=== PATIENT | male | born 1985 | race Caucasian/White ===

== ENCOUNTER 2023-04-19 15:07 | Outpatient (CLI) | payer OTHER, SELFPAY ==
[2023-04-19 22:47] LABS: PCR FLU A Negative PCR FLU A (Negative); PCR FLU B Negative PCR FLU B (Negative); PCR RSV Negative PCR RSV (Negative)
[2023-04-19 23:20] LABS: SARS PCR* Negative SARS-CoV-2 (Negative)
== END 2023-04-19 15:08 | disposition home or self-care (01) ==
LOC: KYNREF 15:07
PROVIDERS: PCP Nurse Practitioner Family; Visit Provider Nurse Practitioner Family
DX: J06.9 Acute upper respiratory infection, unspecified (principal)
CPT/HCPCS: 87631

== ENCOUNTER 2024-01-14 10:52 | Outpatient (CLI) | payer OTHER, SELFPAY ==
--- OUTSIDE RECORDS SUMMARY | 2024-01-14 10:56 | XMS_ITS | Clinical Summary ---
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 14 Patch 3 10/14/2018 Active CPAPIndications:MILAN (obstructive sleep apnea) Full face mask 1/3 months full face mask cushion / month 1 Device 1 02/22/2020 Active Active Problems Problem Noted Date Diagnosed Date Catathrenia 06/14/2017 AHI-1.1 , Catathrenia note on the recording, several centrals REM-5.3 07/30/2017 Central sleep apnea- HST 06/14/2017 CAHI-11 2017 Catathrenia 07/02/2017 Central sleep apnea 06/16/2017 Tobacco dependence 06/14/2017 Depressive disorder, not elsewhere classified Immunizations Name Administration Dates Next Due DTaP 04/15/1996, 9,05/13/1985,04/11/1984,02/21/1984,0 1983 HIB HbOC (HibTITER) 09/22/1985 MMR 07/31/1995,12/23/1984 Oral Polio Vaccine 12/11/1988,05/13/1985, 984,1983 Td (Age >=7 Years) 04/15/1996 Tdap 10/28/2008,11/28/2006 Social History Tobacco Use Types Packs/Day Years Used Date Smoking Tobacco: Every Day Cigarettes 1 15 Smokeless Tobacco: Never Tobacco Cessation:Ready to Q uit: Not Asked; Counseling Given: Not Answered Alcohol Use Standard Drinks/Week Comments Yes 2 (1 standard drink = 0.6 oz pur e alcohol) rare PHQ-2 Answer Date Recorded PHQ-2 TOTAL SCORE 0 08/25/2020 Social Connections Answer Date Recorded Frequency of Communication with Friends and Fami ly Not on file 10/04/2022 Financial Resource Strain Answer Date R ecorded Difficulty of Paying Living Expenses Not on file 04/16/2021 Difficulty of Paying Living Expenses Not on file 04/16/2021 Sex and Gender Information Value Date Recorded Sex Assigned at Not on file Gender Identity Not on file Sexual Orientation Not on file Obstetrics History Last Filed Vital Signs Vital Sign Reading Time Taken Comments Blood Pressure 124/80 10/04/2022 3:04 PM CDT Pulse 92 10/04/2022 3:04 PM CDT Temperature 36.7 ??C (98 ??F) 11/25/2018 3:13 PM CDT Respiratory Rate 12 10/04/2022 3:04 PM CDT Oxygen Saturation 99% 04/29/2019 3:06 PM SALES SUPPORT ADVISOR Inhaled Oxygen Concentration - - Weight 73.1 kg (161 lb 3.2 oz) 04/29/2019 3:06 P M SALES SUPPORT ADVISOR Height 179.5 cm (5' 10.67) 11/13/2018 7:54 AM C DT Body Mass Index 22.69 11/13/2018 7:54 AM CDT Plan of Treatment Health Maintenance Due Date Last Done Comments Pneumococcal series for age 6-64 (1 of 2 - PCV) 09/05/1989 HIV for age 15-65 09/05/1998 Tetanus booster 10/28/2018 10/28/2008, 11/14, 04/15/1996 BMI (ht and wt on same day) for age 18+ 11/14/2019 11/13/2018, 10/14/2018, 08/05/2018, Additional history exists Depression screening for age 12+ 08/25/2021 08/25/2020, 08/25/2020, 10/14/2018, Additional history exists Lipids for age 35-44 10/15/2023 10/14/2018 COVID-19 vaccine series (3 season) 2023 01/11/2021, 12/09/2020 Influenza for age 9-49 12/16/2023 Hepatitis C screening for ag e 18-79 Completed 06/10/2004 Tdap Completed 10/28/2008, 11/28/2006 Procedures Procedure Name Priority Date/Time Associated Diagnosis Comments LIPID PANEL W REFLEX MEASURED LDL Routine 10/14/2018 3:09 PM CDT Screening for hyperlipidemia ANTI HCV Timed 06/10/2004 3:13 PM SALES SUPPORT ADVISOR from Last 3 Months or Most Recently Relevant to Health Maintenance Results * LIPID PANEL W REFLEX MEASURED LDL (10/14/2018 3:09 PM CDT) CHOLESTEROL,TOTAL 159 100 - 199 mg/dL 10/14/2018 8:06 PM CDT [facility] TRIGLYCERIDES 78 <150 mg/dL 10/14/2018 8:06 PM CDT [facility] HDL CHOLESTEROL 54 >40 mg/dL 9 8:06 PM CDT [facility] NON-HDL CHOLESTEROL 105 <145 mg/dl 10/14/2018 8:06 PM CDT [facility] CHOL/HDL RATIO 2.94 <4.50 10/14/2018 8:06 PM CDT [facility] LDL CHOLESTEROL 89 <=130 mg/dL 10/14/2018 8:06 PM CDT [facility] PROVIDER ORDERED STATUS RANDOM 10/14/2018 8:06 PM CDT [facility] Blood BLOOD SPECIMEN / Unknown Venipuncture / Unknown 10/14/2018 3:09 PM CDT 10/14/2018 3:10 PM CDT Jose Martinez DO CHEMISTRY [facility] [address] [place] [address], * ANTI HCV (06/10/2004 3:13 PM SALES SUPPORT ADVISOR) ANTI HCV Non-reactiv e [facility] 06/10/2004 3:13 PM SALES SUPPORT ADVISOR 06/10/2004 7:49 PM SALES SUPPORT ADVISOR Narrative [facility] - 06/14/2004 1:31 PM SALES SUPPORT ADVISOR Testing Performed By [place], [place] Allan Mendoza MD SEND OUTS [facility] [address] [place] [address] from Last 3 Months or Most Recently Relevant to Health Maintenance Care Teams Clinical Program Consultant Relationship Specialty Start Date End Date Jose Martinez DO [address] [place] [address] PCP - General Family Practice 06/18/17
== END 2024-01-14 10:53 | disposition home or self-care (01) ==
PROVIDERS: PCP Nurse Practitioner Family; Visit Provider Nurse Practitioner Family
DX: Z13.21 Encounter for screening for nutritional disorder (principal); Z13.228 Encounter for screening for other metabolic disorders; Z13.220 Encounter for screening for lipoid disorders; Z13.0 Encounter for screening for diseases of the blood and blood-forming organs and certain disorders involving the immune mechanism
CPT/HCPCS: 80053; 80061; 82306; 85025

== ENCOUNTER 2024-11-24 08:47 | Outpatient (CLI) | payer OTHER, SELFPAY ==
--- NOTE | 2024-11-24 08:45 | CRLHL7_ITS ---
For Patients: As a result of the Cures Act, medical imaging exams and procedure reports are released immediately into your electronic medical record. You may view this report before your referring provider. If you have questions, please contact your health care provider. DIGITAL DIAGNOSTIC BILATERAL MAMMOGRAM USING TOMOSYNTHESIS AND COMPUTER-AIDED DETECTION RIGHT AXILLARY ULTRASOUND CLINICAL HISTORY: RIGHT axillary lump. COMPARISON: None. TECHNIQUE: Digital BILATERAL mammogram in four projections with computer-aided detection. Tomosynthesis was used in this interpretation. Real-time ultrasound imaging of RIGHT axilla with imaging documentation. BREAST COMPOSITION: The breasts are almost entirely fatty. FINDINGS: 3D CC/MLO BILATERAL mammogram images submitted. No suspicious masses or architectural distortion. No suspicious calcifications. Targeted RIGHT axillary ultrasound performed. Normal lymph nodes are present with normal morphology. Normal internal fatty stanislav and normal internal vascularity. No cortical thickening. Lymph nodes measure 2.6 x 0.5 x 1.5 cm and 2.3 x 0.6 x 1.6 cm. IMPRESSION: No suspicious findings. No evidence of malignancy. No abscess. RECOMMENDATIONS: Clinical follow-up. A lay language report of this examination will be provided to the patient. BI-RADS Category 2: Benign Dictated by Chandra Harris MD @ 11/24/2024 9:32:49 AM jj/Dictated by: Chandra Harris MD @ 11/24/2024 9:32:00 AM (Electronically Signed)
--- NOTE | 2024-11-24 09:15 | CRLHL7_ITS ---
For Patients: As a result of the Cures Act, medical imaging exams and procedure reports are released immediately into your electronic medical record. You may view this report before your referring provider. If you have questions, please contact your health care provider. SEE DIGITAL DIAGNOSTIC BILATERAL MAMMOGRAM PERFORMED SAME DAY CRL:yamileth carson/Dictated by: Chandra Harris MD @ 11/24/2024 9:32:00 AM (Electronically Signed)
== END 2024-11-24 08:48 | disposition home or self-care (01) ==
PROVIDERS: PCP Nurse Practitioner Family; Visit Provider Nurse Practitioner Family
DX: N63.10 Unspecified lump in the right breast, unspecified quadrant (principal); R59.0 Localized enlarged lymph nodes
CPT/HCPCS: 76882; 77066; G0279